=== PATIENT | male | born 1940 | race Caucasian/White ===

== ENCOUNTER 2018-02-19 13:41 | Inpatient (IN) | payer MEDICARE ==
[~2018-02-19] VITALS: Ht 171.4 cm; Wt 72.3 kg
[2018-02-21] MEDS ORDERED: ASPI-496 PO (12:42)
[2018-02-21] MEDS ORDERED: ATOR20TA37 PO (12:42)
[2018-02-21] MEDS ORDERED: CLOP75TA52 PO (12:42)
[2018-02-21] MEDS ORDERED: LACTATED RINGERS 1,000 ML IV SCH (12:43)
[2018-02-21] MEDS ORDERED: BUPIVACAINE/PF 0.25% ONE (12:49)
[2018-02-21] MEDS ORDERED: EPINEPHRINE 1 MG/ML, 1ML ONE (12:50)
[2018-02-21] MEDS ORDERED: HEPARIN 1,000 UNITS/ML, 10ML ONE (12:50)
[2018-02-21] MEDS ORDERED: PROTAMINE SULFATE 10 MG/ML, 5ML ONE (12:50)
[2018-02-21] MEDS ORDERED: THROMBIN SPRAY 20,000 UNIT SPRAY TP ONE (12:50)
[2018-02-21 13:29] LABS: BASOPHILS # (AUTO) 0.04 x10^3/uL (0-0.1); BASOPHILS % (AUTO) 0 % (0-1); EOSINOPHILS # (AUTO) 0.33 x10^3/uL (0-0.4); EOSINOPHILS % (AUTO) 3 % (1-7); LYMPHOCYTES # (AUTO) 1.75 x10^3/uL (1-3.4); LYMPHOCYTES % (AUTO) 17 % (22-44); MD NO; MEAN CORPUSCULAR HEMOGLOBIN 30.7 pg (27.5-34.5); MEAN CORPUSCULAR HGB CONC 32.9 g/dL (33.2-36.2); MEAN CORPUSCULAR VOLUME 93.4 fL (81-97); MEAN PLATELET VOLUME 7.3 fL (7.4-10.4); MONOCYTES % (AUTO) 9 % (2-9); NEUTROPHILS # (AUTO) 7.45 x10^3/uL (1.8-6.8); NEUTROPHILS % (AUTO) 71 % (42-75); PLATELET COUNT 353 x10^3/uL (130-400); RED CELL DISTRIBUTION WIDTH 15.5 % (9.4-14.8)
[2018-02-21] MEDS ORDERED: LATA7.5D TP (13:29)
[2018-02-21] MEDS ORDERED: TIMO1DRO2 TP (13:29)
[2018-02-21] MEDS ORDERED: BRIM5DRO3 EACHEYE (13:29)
[2018-02-21] MEDS ORDERED: MULT-751 PO (13:29)
[2018-02-21 13:38] LABS: ANION GAP 7 mmol/L (5-15); CALCIUM 8.8 mg/dL (8.5-10.1); CHLORIDE 106 mmol/L (98-107); CREATININE 1.37 mg/dL (0.7-1.3)
[2018-02-21] MEDS ORDERED: MIDAZOLAM 1 MG/ML, 2ML ONE (14:58)
[2018-02-21] MEDS ORDERED: FENTANYL PF 250 MCG/5ML ONE (14:58)
[2018-02-21] MEDS ORDERED: PROPOFOL 10 MG/ML, 20ML ONE (15:05)
[2018-02-21] MEDS ORDERED: GLYCOPYRROLATE 0.2MG/1ML, 5ML ONE (15:05)
[2018-02-21] MEDS ORDERED: SUCCINYLCHOLINE 20 MG/ML, 10ML ONE (15:05)
[2018-02-21] MEDS ORDERED: DEXAMETHASONE 4 MG/ML, 1ML ONE (15:05)
[2018-02-21] MEDS ORDERED: ONDANSETRON 2MG/ML, 2ML ONE (15:05)
[2018-02-21] MEDS ORDERED: NEOSTIGMINE 1 MG/ML, 10ML ONE (15:05)
[2018-02-21] MEDS ORDERED: CEFAZOLIN 1,000 MG ONE (15:05)
[2018-02-21] MEDS ORDERED: PHENYLEPHRINE 10 MG/ML ONE (15:05)
[2018-02-21] MEDS ORDERED: ROCURONIUM 10 MG/ML,10ML ONE (15:05)
[2018-02-21] MEDS ORDERED: HYDROmorphone 2 MG/ML, 1ML IVPush PRN (16:30)
[2018-02-21] MEDS ORDERED: METOPROLOL 1 MG/ML, 5ML IV PRN (16:30)
[2018-02-21] MEDS ORDERED: MIDAZOLAM 1 MG/ML, 2ML IV PRN (16:30)
[2018-02-21] MEDS ORDERED: FENTANYL PF 100 MCG/2ML IV PRN (16:30)
[2018-02-21] MEDS ORDERED: OXYcodone 5 MG/5 ML ORAL.SOL UDC PO PRN (16:30)
[2018-02-21] MEDS ORDERED: hydrALAzine 20 MG/ML, 1ML IV PRN ×2 (16:30→20:30)
[2018-02-21] MEDS ORDERED: ALBUTEROL/IPRATROPIUM 2.5MG/0.5MG, 3 ML NPPB PRN (16:30)
[2018-02-21] MEDS ORDERED: ONDANSETRON 2MG/ML, 2ML IV PRN (16:30)
[2018-02-21] MEDS ORDERED: PROMETHAZINE 25 MG/ML, 1ML IV PRN (16:30)
[2018-02-21] MEDS ORDERED: MEPERIDINE/PF 25MG/0.5ML IVPush PRN (16:30)
[2018-02-21] MEDS ORDERED: FENTANYL PF 100 MCG/2ML ONE (17:40)
[2018-02-21 19:20] VITALS: BP 126/77
[2018-02-21] MEDS ORDERED: ACETAMINOPHEN 325 MG TABLET PO PRN (20:00)
[2018-02-21] MEDS ORDERED: LABETALOL 20 MG/4 ML IV PRN (20:30)
[2018-02-21] MEDS: MORPHINE SULFATE 4 MG/ML, 1ML IV PRN ×2 (20:32→21:01)
[2018-02-21] MEDS: ONDANSETRON 2MG/ML, 2ML IV PRN (20:32)
[2018-02-21] MEDS: SODIUM CHLORIDE 0.9% 1,000 ML IV SCH (20:32)
[2018-02-21] MEDS ORDERED: TIMOLOL OPHTH 0.5%, 5ML OP SCH (21:00)
[2018-02-21] MEDS ORDERED: LATANOPROST OPHTH 0.005%, 2.5ML OP SCH (21:00)
[2018-02-21] MEDS ORDERED: BRIMONIDINE TART. OPHTH 0.2%, 5ML EACHEYE SCH (21:00)
[2018-02-21] MEDS: HYDROcodone/APAP 5/325 TABLET PO PRN (22:30)
[2018-02-21] MEDS: ATORVASTATIN 20 MG TABLET PO SCH (23:17)
[2018-02-21] MEDS: CEFAZOLIN PMX 2GM/50ML 50 ML IVPB SCH (23:17)
[2018-02-22 00:35] VITALS: BP 135/76
[2018-02-22] MEDS: HYDROcodone/APAP 5/325 TABLET PO PRN ×4 (02:31→20:44)
[2018-02-22 04:03] VITALS: BP 120/78
[2018-02-22 06:07] LABS: BASOPHILS # (AUTO) 0.03 x10^3/uL (0-0.1); BASOPHILS % (AUTO) 0 % (0-1); CHLORIDE 106 mmol/L (98-107); EOSINOPHILS % (AUTO) 0 % (1-7); LYMPHOCYTES # (AUTO) 1.15 x10^3/uL (1-3.4); LYMPHOCYTES % (AUTO) 8 % (22-44); MD NO; MEAN CORPUSCULAR HEMOGLOBIN 31.6 pg (27.5-34.5); MEAN CORPUSCULAR HGB CONC 33.5 g/dL (33.2-36.2); MEAN CORPUSCULAR VOLUME 94.3 fL (81-97); MEAN PLATELET VOLUME 7.4 fL (7.4-10.4); MONOCYTES # (AUTO) 1.09 x10^3/uL (0.2-0.8); MONOCYTES % (AUTO) 8 % (2-9); NEUTROPHILS # (AUTO) 11.59 x10^3/uL (1.8-6.8); NEUTROPHILS % (AUTO) 84 % (42-75); PLATELET COUNT 278 x10^3/uL (130-400); RED BLOOD COUNT 3.73 x10^6/uL (4.38-5.82)
[2018-02-22 06:19] LABS: ANION GAP 9 mmol/L (5-15); CALCIUM 7.7 mg/dL (8.5-10.1); CREATININE 1.32 mg/dL (0.7-1.3)
[2018-02-22] MEDS: ASPIRIN 81 MG TABLET EC PO SCH (06:34)
[2018-02-22] MEDS: SODIUM CHLORIDE 0.9% 1,000 ML IV SCH ×2 (06:35→16:21)
[2018-02-22 07:10] VITALS: BP 113/70
[2018-02-22] MEDS: CLOPIDOGREL 75 MG TABLET PO SCH (08:13)
[2018-02-22] MEDS: CEFAZOLIN PMX 2GM/50ML 50 ML IVPB SCH ×2 (08:13→16:21)
[2018-02-22] MEDS: ENOXAPARIN 40 MG/0.4 ML SQ SCH (08:14)
[2018-02-22 13:17] VITALS: BP 123/77
[2018-02-22 17:01] VITALS: BP 120/70
[2018-02-22 19:12] VITALS: BP 120/67
[2018-02-22] MEDS: ATORVASTATIN 20 MG TABLET PO SCH (20:43)
[2018-02-22] MEDS ORDERED: ALUMINUM/MAG/SIMETHICONE 30 ML UDC ONE (22:39)
[2018-02-22] MEDS ORDERED: ALUMINUM/MAG/SIMETHICONE 30 ML UDC PO PRN (23:00)
[2018-02-23 00:44] VITALS: BP 139/7
[2018-02-23] MEDS: SODIUM CHLORIDE 0.9% 1,000 ML IV SCH (02:00)
[2018-02-23] MEDS: HYDROcodone/APAP 5/325 TABLET PO PRN ×2 (02:25→06:22)
[2018-02-23] MEDS: ONDANSETRON 2MG/ML, 2ML IV PRN (02:25)
[2018-02-23] MEDS ORDERED: CLOP75TA52 PO (02:53)
[2018-02-23] MEDS ORDERED: HYDR-3240 PO (02:55)
[2018-02-23] MEDS: ASPIRIN 81 MG TABLET EC PO SCH (06:16)
[2018-02-23] MEDS: CLOPIDOGREL 75 MG TABLET PO SCH (08:15)
[2018-02-23] MEDS: ENOXAPARIN 40 MG/0.4 ML SQ SCH (08:16)
[2018-02-23 08:36] VITALS: BP 118/66
== END 2018-02-23 11:20 | disposition home or self-care (01) | DRG 268 ==
LOC: EDSTATUS 14:30 → ORIP 02-21 11:54 → 4NOR 02-21 19:25 → DCLOUNGE 02-23 11:05
PROVIDERS: ADMIT Surgery; ATTEND Surgery
PROC: 047J34Z Dilation of Left External Iliac Artery with Drug-eluting Intraluminal Device, Percutaneous Approach (ICD-10-PCS; 2018-02-21)
PROC: 047L34Z Dilation of Left Femoral Artery with Drug-eluting Intraluminal Device, Percutaneous Approach (ICD-10-PCS; 2018-02-21)
PROC: B41G1ZZ Fluoroscopy of Left Lower Extremity Arteries using Low Osmolar Contrast (ICD-10-PCS; 2018-02-21)
PROC: B4101ZZ Fluoroscopy of Abdominal Aorta using Low Osmolar Contrast (ICD-10-PCS; 2018-02-21)
PROC: 04V03EZ Restriction of Abdominal Aorta with Branched or Fenestrated Intraluminal Device, One or Two Arteries, Percutaneous Approach (ICD-10-PCS; 2018-02-21)
PROC: 04VC3DZ Restriction of Right Common Iliac Artery with Intraluminal Device, Percutaneous Approach (ICD-10-PCS; principal; 2018-02-21 14:30)
PROC: 04VD3DZ Restriction of Left Common Iliac Artery with Intraluminal Device, Percutaneous Approach (ICD-10-PCS; 2018-02-21 14:30)
DX: I72.3 Aneurysm of iliac artery (principal); J96.00 Acute respiratory failure, unspecified whether with hypoxia or hypercapnia; I74.3 Embolism and thrombosis of arteries of the lower extremities; I74.5 Embolism and thrombosis of iliac artery; I72.4 Aneurysm of artery of lower extremity; E78.5 Hyperlipidemia, unspecified; H40.9 Unspecified glaucoma; H35.30 Unspecified macular degeneration; I12.9 Hypertensive chronic kidney disease with stage 1 through stage 4 chronic kidney disease, or unspecified chronic kidney disease; I73.9 Peripheral vascular disease, unspecified; N18.9 Chronic kidney disease, unspecified; Z87.891 Personal history of nicotine dependence
CPT/HCPCS: 34705; 36415; 74021; 80048; 85025; 93005; C1725; G0378; J0171; J0690; J1100; J1644; J1650; J2250; J2405; J2704; J2710; J2720; J3010; J3490; C1751; C1768; C1769; C1874; C1894; C2628; J0330; J0360; J2370; J7030; J7120